=== PATIENT | male | born 1945 | race Caucasian/White ===

== ENCOUNTER → 2016-08-10 | Outpatient (CLI) | payer MEDICARE ==
[~2016-08-10] MED LIST: AMLO5 PO; AMLO5TAB2 PO; ASCO10003 PO; ATOR1TAB18 PO; ATOR80TA PO; IMDU30TA PO; ISOS30TA3 PO; LORA-474 PO; MEGATAB4; METO50TA PO; MILK200C PO; OMEG340C; OMEG340C PO; OXYBXL5 PO; OXYC-432 PO; PERC5TAB12 PO; PROS5TAB PO; PROS5TAB2 PO; RIVA20 PO; SERT100 PO; TRAZ100 PO; TRAZ100T5 PO; VITA100017 PO; XARE20TA PO; ZOLO100T PO; [UNRECOGNIZED DRUG - CODE] PO
[2016-08-10 15:02] LABS: AUTOMATED NEUTROPHIL # 3.8 TH/MM3 (1.8-7.7); BASOPHIL % 0.6 % (0.0-2.0); EOSINOPHIL # 0.1 TH/MM3 (0-0.4); HEMATOCRIT 42.9 % (39.0-51.0); HEMO FLAGS DIFF FINAL; LYMPH % 27.1 % (9.0-44.0); LYMPHOCYTE # 1.7 TH/MM3 (1.0-4.8); MEAN CELL VOLUME 101.6 FL (80.0-100.0); MEAN CORPUSCULAR HEMOGLOBIN 33.9 PG (27.0-34.0); MEAN CORPUSCULAR HGB CONC 33.4 % (32.0-36.0); NEUT % 62.3 % (16.0-70.0); PLATELET COUNT 199 TH/MM3 (150-450); RED BLOOD COUNT 4.23 MIL/MM3 (4.50-5.90); RED CELL DISTRIBUTION WIDTH 13.8 % (11.6-17.2); WHITE BLOOD COUNT 6.1 TH/MM3 (4.0-11.0)
[2016-08-10 15:12] LABS: BLOOD, URINE NEG (NEG); COMMENT (UR) CULT NOT INDICATED; CULTURE IF INDICATED CULT NOT INDICATED; GLUCOSE,URINE NEG (NEG); KETONE, URINE NEG (NEG); NITRITE,URINE NEG (NEG); SQUAMOUS EPITHELIAL CELL URINE <1 /hpf (0-5); URINE COLOR YELLOW (YELLW/STRAW)
[2016-08-10 15:23] LABS: ALT (GPT) 28 U/L (12-78); ANION GAP 6 MEQ/L (5-15); AST (GOT) 17 U/L (15-37); BLOOD UREA NITROGEN 17 MG/DL (7-18); CHLORIDE 104 MEQ/L (98-107); GLUCOSE,FASTING 126 MG/DL (74-99); POTASSIUM 3.9 MEQ/L (3.5-5.1); SODIUM (NA) 143 MEQ/L (136-145)
[2016-08-10 15:48] LABS: ALKALINE PHOSPHATASE 77 U/L (45-117); FREE T3 2.14 PG/ML (2.18-3.98); GLOMERULAR FILTRATION RATE 65 ML/MIN (>89); HDL CHOLESTEROL 90.4 MG/DL (40.0-60.0); LDL CHOLESTEROL 57 MG/DL (0-99); TOTAL BILIRUBIN ADULT 0.5 MG/DL (0.2-1.0)
== END ==
LOC: CLAB 14:09
PROVIDERS: ATTEND Internal Medicine
DX: Z12.5 Encounter for screening for malignant neoplasm of prostate (principal); Z12.11 Encounter for screening for malignant neoplasm of colon; E29.1 Testicular hypofunction; I25.10 Atherosclerotic heart disease of native coronary artery without angina pectoris; M19.90 Unspecified osteoarthritis, unspecified site; N40.0 Benign prostatic hyperplasia without lower urinary tract symptoms; Z79.899 Other long term (current) drug therapy
CPT/HCPCS: 36415; 80053; 80061; 81001; 82607; 84153; 84403; 84481; 85025

== ENCOUNTER → 2016-08-14 | Outpatient (CLI) | payer MEDICARE ==
[~2016-08-14] MED LIST changes: -AMLO5 PO; -ATOR80TA PO; -IMDU30TA PO; -OMEG340C PO; -PERC5TAB12 PO; -PROS5TAB2 PO; -RIVA20 PO; -SERT100 PO; -TRAZ100 PO; -VITA100017 PO; -[UNRECOGNIZED DRUG - CODE] PO
== END ==
LOC: CLAB 15:02
PROVIDERS: ATTEND Internal Medicine
DX: I25.10 Atherosclerotic heart disease of native coronary artery without angina pectoris (principal); M19.90 Unspecified osteoarthritis, unspecified site; N40.0 Benign prostatic hyperplasia without lower urinary tract symptoms; Z79.899 Other long term (current) drug therapy; Z12.5 Encounter for screening for malignant neoplasm of prostate; Z12.11 Encounter for screening for malignant neoplasm of colon
CPT/HCPCS: 82272

== ENCOUNTER → 2016-10-24 | Outpatient (CLI) | payer MEDICARE | LOC: CLAB 12:26 | PROVIDERS: ATTEND Urology | DX: N40.1 Benign prostatic hyperplasia with lower urinary tract symptoms (principal) | CPT/HCPCS: 36415; 84153 ==

== ENCOUNTER → 2017-08-07 | Outpatient (CLI) | payer MEDICARE ==
[~2017-08-07] MED LIST changes: -ATOR1TAB18 PO; +ATOR80TA45 PO
[2017-08-07 13:19] LABS: BILIRUBIN, URINE NEG (NEG); BLOOD, URINE NEG (NEG); GLUCOSE,URINE NEG (NEG); KETONE, URINE NEG (NEG); MUCUS URINE FEW /lpf (OCC); NITRITE,URINE NEG (NEG); PH, URINE 6.5 (5.0-8.5); SQUAMOUS EPITHELIAL CELL URINE <1 /hpf (0-5); URINE COLOR YELLOW (YELLW/STRAW); URINE LEUKOCYTE ESTERASE NEG (NEG)
[2017-08-07 13:22] LABS: BASOPHIL % 0.6 % (0.0-2.0); EOSINOPHIL # 0.1 TH/MM3 (0-0.4); HEMOGLOBIN 14.3 GM/DL (13.0-17.0); LYMPH % 26.6 % (9.0-44.0); LYMPHOCYTE # 1.3 TH/MM3 (1.0-4.8); MEAN CELL VOLUME 105.8 FL (80.0-100.0); MEAN CORPUSCULAR HGB CONC 34.1 % (32.0-36.0); MEAN PLATELET VOLUME 7.7 FL (7.0-11.0); MONO % 9.3 % (0.0-8.0); MONOCYTE # 0.5 TH/MM3 (0-0.9); NEUT % 61.5 % (16.0-70.0); PLATELET COUNT 200 TH/MM3 (150-450); RED BLOOD COUNT 3.97 MIL/MM3 (4.50-5.90); RED CELL DISTRIBUTION WIDTH 13.9 % (11.6-17.2); WHITE BLOOD COUNT 4.9 TH/MM3 (4.0-11.0)
[2017-08-07 13:38] LABS: ALT (GPT) 27 U/L (12-78); AST (GOT) 30 U/L (15-37); BICARBONATE 27.8 MEQ/L (21.0-32.0); BLOOD UREA NITROGEN 10 MG/DL (7-18); CALCIUM 9.1 MG/DL (8.5-10.1); CHLORIDE 100 MEQ/L (98-107); CHOLESTEROL 146 MG/DL (120-200); CREATININE 0.91 MG/DL (0.60-1.30); GLOMERULAR FILTRATION RATE 81 ML/MIN (>89); GLUCOSE,FASTING 90 MG/DL (74-99); SODIUM (NA) 138 MEQ/L (136-145)
[2017-08-07 13:41] LABS: ALKALINE PHOSPHATASE 55 U/L (45-117); CHOLESTEROL/ HDL RATIO 1.57 RATIO; HDL CHOLESTEROL 92.7 MG/DL (40.0-60.0); LDL CHOLESTEROL 43 MG/DL (0-99); TOTAL BILIRUBIN ADULT 0.6 MG/DL (0.2-1.0); TRIGLYCERIDES 53 MG/DL (42-150)
[2017-08-07 15:13] LABS: FREE T3 2.21 PG/ML (2.18-3.98); FREE T4 0.92 NG/DL (0.76-1.46)
[2017-08-07 18:56] LABS: HEMOGLOBIN A1C 5.5 % (4.3-6.0)
== END ==
LOC: CLAB 12:38
PROVIDERS: ATTEND Internal Medicine
DX: R53.83 Other fatigue (principal); R73.01 Impaired fasting glucose; I10 Essential (primary) hypertension; Z12.5 Encounter for screening for malignant neoplasm of prostate; Z79.899 Other long term (current) drug therapy; Z12.11 Encounter for screening for malignant neoplasm of colon
CPT/HCPCS: 36415; 80053; 80061; 81001; 82607; 83036; 84153; 84439; 84443; 84481; 85025

== ENCOUNTER 2017-09-26 13:25 | Emergency (ER) | payer MEDICARE ==
[~2017-09-26] VITALS: Ht 170.2 cm; Wt 100.0 kg
[2017-09-26] MEDS ORDERED: FLUMAZENIL 1 MG/10 ML VIAL IV ONE (13:26)
[2017-09-26] MEDS ORDERED: diphenhydrAMINE HCL 50 MG/ML VIAL IV ONE (13:26)
[2017-09-26] MEDS ORDERED: LIDOCAINE/D5W 2000 MG/500 ML 500 ML IV ONE (13:26)
[2017-09-26] MEDS ORDERED: MAGNESIUM SULFATE 40 MEQ/10 ML VIAL IV ONE (13:26)
[2017-09-26] MEDS ORDERED: CALCIUM CHLORIDE 10% SOLN 1 GRAM/10 ML SYR IV ONE (13:26)
[2017-09-26] MEDS ORDERED: EPINEPHrine HCL (1:10,000) 1 MG/10 ML SYRINGE IV ONE (13:26)
--- NOTE | 2017-09-26 13:46 | PD ---
HPI Chief Complaint: Cardiac arrest Time Seen by Provider: 13:54 Travel History International Travel<30 days: No Contact w/Intl Traveler<30days: No History of Present Illness HPI Is a 72-year-old male unknown past medical history presents emergency department in asystolic arrest. Apparently he went to a fast food restaurant locally and ordered about a half an hour prior to being discovered in his car unresponsive. 911 was called and begin working with ACLS protocol for 15 minutes prior to arrival to the emergency department. He received multiple ampules of epinephrine, bicarb prior to arrival. He had an intraosseous needle started in the right tib-fib, was intubated with ET tube. No other bystanders on site were familiar with the patient's past medical history. PFSH Past Medical History Arthritis: Yes Asthma: No Autoimmune Disease: No Anxiety: No Depression: No Heart Rhythm Problems: Yes Cancer: No Cardiac Catheterization: Yes (last ) Cardiovascular Problems: Yes (S/P CABG) High Cholesterol: Yes Chemotherapy: No Chest Pain: Yes Congestive Heart Failure: No COPD: No Cerebrovascular Accident: No Diabetes: No Endocrine: No Gastrointestinal Disorders: No GERD: Yes Genitourinary: Yes (BPH) Headaches: Yes Hepatitis: No Hiatal Hernia: No Hypertension: Yes Immune Disorder: No Implanted Vascular Access Dvce: No Kidney Stones: No Musculoskeletal: Yes (ARTHRITIS) Neurologic: No Psychiatric: Yes (ANXIETY) Reproductive: No Respiratory: No Immunizations Current: Yes Migraines: No Radiation Therapy: No Renal Failure: No Seizures: No Sickle Cell Disease: No Sleep Apnea: No Thyroid Disease: No Ulcer: Yes Past Surgical History Abdominal Surgery: No AICD: No Arteriovenous Shunt: No Body Medical Devices: KNEE AND HIP Cardiac Surgery: Yes (CABG(3VESSEL)) Coronary Artery Bypass Graft: Yes Ear Surgery: No Endocrine Surgery: No Eye Surgery: Yes (RIGHT RETINAL REP., CLAUDIA. CATARACT EXTRACT) Genitourinary Surgery: Yes (TURP) Gynecologic Surgery: No Insulin Pump: No Joint Replacement: Yes (RIGHT HIP, LEFT KNEE) Neurologic Surgery: Yes (L4 SURGERY) Oral Surgery: No Pacemaker: No Thoracic Surgery: No Other Surgery: Yes Social History Alcohol Use: Yes (DAILY WHISKEY X 2) Tobacco Use: No Substance Use: No Allergies-Medications (Allergen,Severity, Reaction): Coded Allergies: No Known Allergies (Unverified , 11/02/16) Reported Meds & Prescriptions Reported Meds & Active Scripts Active Proscar (Finasteride) 5 Mg Tab 5 Mg PO DAILY Do not crush. Ditropan XL 24 HR (Oxybutynin Chloride) 5 Mg Tab 5 Mg PO DAILY Reported Zoloft (Sertraline HCl) 100 Mg Tab 100 Mg PO DAILY [place] 3 340 mg ([place]-3 Fatty Acids) 1 Cap Cap Milk Thistle 200 Mg Cap 200 Cap PO DAILY Metoprolol Tartrate 50 Mg Tab 50 Mg PO BID Anurag Multivitamin For Men (Multiple Vitamins W/ Minerals) 1 Tab Tab Ativan (Lorazepam) 1 Mg Tab 1 Mg PO BID PRN Xarelto (Rivaroxaban) 20 Mg Tab 20 Mg PO DAILY Trazodone HCl 100 Mg Tab 100 Mg PO HS Oxycodone-Acetaminophen 5-325 mg Tab 1 Tab PO Q6H PRN Isosorbide Mononitrate ER (Isosorbide Mononitrate) 30 Mg Sunny 30 Mg PO DAILY Atorvastatin (Atorvastatin Calcium) 80 Mg Tab 80 Mg PO HS Ascorbic Acid 1,000 Mg Tab 1,000 Mg PO DAILY Amlodipine (Amlodipine Besylate) 5 Mg Tab 5 Mg PO DAILY Review of Systems ROS Limitations: Intubated, Altered Mental Status Physical Exam Exam Limitations: Altered Mental Status Narrative GENERAL: Pulseless apneic, well-developed and well-nourished. CPR in progress SKIN: Warm and dry, well-healed midline sternotomy scar peer HEAD: Atraumatic. Normocephalic. EYES: Pupils are fixed and dilated ENT: No nasal bleeding or discharge. Intubated, good color change NECK: Trachea midline. No JVD. CARDIOVASCULAR: Pulseless, asystolic. RESPIRATORY: [id number] the ET tube, bilateral breath sounds with artificial ventilation. Absent sounds over the epigastrium GASTROINTESTINAL: Abdomen soft, non-tender, nondistended. Hepatic and splenic margins not palpable. MUSCULOSKELETAL: No obvious deformities. No clubbing. No cyanosis. No edema. No edema of bilateral calfs, right sided IO axis in the tibia, appears to be a good IO access. NEUROLOGICAL: GCS of 3 MDM Medical Decision Making Medical Screen Exam Complete: Yes Emergency Medical Condition: Yes Differential Diagnosis STEMI, PE, cardiac arrest, pulmonary arrest Narrative Course Patient was room to the emergency department. ACLS protocol was continued, he was given calcium magnesium and additional impotence of epinephrine, 2 pulse checks showing asystole pulseless and apneic. I was then notified by my charge nurse that she received a call from Gladys who directed us to DNR. A living will was then found in his record naming her as the healthcare surrogate. It specified that she was able to make DNR decisions on his behalf. The patient nonetheless was worked for about 11 minutes. Medical resuscitation efforts were proving futile. His likelihood of having meaningful neurologic outcome was approaching 0%, after discovering the patient's DNR I felt that the best interest to discontinue our efforts and let him pass this peacefully as he could. The patient was pronounced at 1333. Patient will be held in the emergency department pending notification of his primary care physician and/or the hospitalist medical director. Chart nurse reports patient primary care physician was located and will sign the certificate Diagnosis Primary Impression: Cardiac arrest Additional Impression: History of coronary artery disease Disposition: 20 Condition: Ezio Clark MD Sep 26, 2017 13:46
== END 2017-09-26 14:25 | disposition expired ==
LOC: NEPE 13:25
DX: I46.9 Cardiac arrest, cause unspecified (principal); I25.10 Atherosclerotic heart disease of native coronary artery without angina pectoris; M19.90 Unspecified osteoarthritis, unspecified site; E78.00 Pure hypercholesterolemia, unspecified; I10 Essential (primary) hypertension; Z95.1 Presence of aortocoronary bypass graft
CPT/HCPCS: 92950; J0171; J1200; J2001; J3475